=== PATIENT | female | born 2000 | race Caucasian/White ===

== ENCOUNTER 2019-10-20 10:55 | Emergency (ER) | payer SELFPAY ==
[~2019-10-20] VITALS: Ht 177.8 cm; Wt 104.5 kg
[2019-10-20] MEDS ORDERED: KETOROLAC TROMETHAMINE 10 MG TABLET PO ONE (12:15)
[2019-10-20 13:45] VITALS: BP 136/68
== END 2019-10-20 14:09 | disposition home or self-care (01) ==
LOC: EMS 10:59
DX: S62.356A Nondisplaced fracture of shaft of fifth metacarpal bone, right hand, initial encounter for closed fracture (principal); W22.01XA Walked into wall, initial encounter; Y93.89 Activity, other specified; Y92.89 Other specified places as the place of occurrence of the external cause; Y99.8 Other external cause status